=== PATIENT | male | born 1995 | race Caucasian/White ===

== ENCOUNTER → 2019-05-26 08:44 | Day surgery (SDC) | payer OTHER ==
[~2019-05-26 08:44] MED LIST: Acetaminophen TAB* 325 MG ONE; Acetaminophen TAB* 325 MG PO ONE; Acetaminophen TAB* 325 MG PO PRN; Buffered Lidocaine 1% SYRIN* 1 ML/SYRINGE INTRADERM ONE; Bupivacaine 0.25% SDV* 30 ML ONE; Dexamethasone IV* 4 MG/ML 1 ML (4 MG) ONE; DiMENhydriNATE IV* 50 MG/ML VIAL IV PUSH PRN; DiMENhydriNATE IV* 50 MG/ML VIAL ONE; Famotidine IV* 10 MG/ML 2 ML (20 mg) ONE; Gabapentin CAP(*) 300 MG ONE; Gabapentin CAP(*) 300 MG PO ONE; HYDROcodone/ACETAMIN 5-325 MG* 1 TAB PO PRN; Ketorolac INJ* 30 MG/ML 1 ML VIAL ONE; Lactated Ringers 1000 ML Bag* 1,000 ML IV SCH; Levalbuterol 0.63MG/3ML NEB* UNIT OF USE INH PRN; Lidocaine 2% PF * 5 ML VIAL ONE; Midazolam* 1 MG/ML 2 ML VIAL (2 MG) ONE; Naloxone* 0.4 MG/ML 1 ML VIAL IV PRN; Ondansetron INJ* 2 MG/ML VIAL IV PRN; PROCHLORPERAZINE INJ 5 MG/ML 2 ML VIAL IV PRN; Propofol* 10 MG/ML 20 ML BTL ONE; ceFAZolin 2 GM in NS PREMIX(*) 2 GM/100 ML BAG IVPB ONE; diPHENhydraMINE IV* 50 MG/ML 1 ml VIAL (BENADRYL) IV PRN; fentaNYL* 50 MCG/ML 2 ML VIAL (100 MCG VIAL) ONE
[2019-05-26 14:29] VITALS: BP 128/85
--- NOTE | 2019-05-26 15:19 | OP ---
DATE OF OPERATION: 05/26/19 - [facility] DATE OF : 89 SURGEON: Sridhar Leiva MD. BOAT HOIST OPERATOR: DEMETRIS Mora. An executive chef assistant was needed for the entirety of the procedure to aid in positioning of the arm and retraction. ANESTHESIOLOGIST: Dr. Amin. ANESTHESIA: General. PRE-OP DIAGNOSIS: Severe extrinsic tightness of the index through small finger extensor tendons secondary to prior extensor tendon repair and transverse surgery. POST-OP DIAGNOSES: 1. Severe extrinsic tightness of the index through small finger extensor tendons secondary to prior extensor tendon repair and transverse surgery. 2. Rupture of the extensor digiti minimi tendon in the fourth dorsal compartment. OPERATIVE PROCEDURE: 1. Z lengthening of the index, long, ring, and small finger extensor extrinsic tendons. 2. Extensor indicis proprius to extensor digitorum communis tendon transfer over the dorsum of the hand. 3. Extensor digiti minimi to extensor digitorum communis tendon transfer on the dorsum of the hand. INDICATIONS: Sarah had the aforementioned tendon surgery to ease out the marked extrinsic tightness. He can only close the hand when the wrist is 30 degrees or more extended. As soon as he gets the wrist to 30 degrees of extension, the fingers start to pop out straight. By the time it comes to neutral, they are fully straight. We are unable to passively or actively close them until the wrist is extended. We talked about lengthening the tendons and the risk of tendon rupture and the risk and need for additional surgery. He understands all this and he wants to proceed. ESTIMATED BLOOD LOSS: 5 mL. COMPLICATIONS: None. FINDINGS: See above and below. DESCRIPTION OF PROCEDURE: Sarah was seen in the preoperative holding area. The correct side, site, and procedure were identified. We came back to the operating room. The arm was prepped and draped in the usual fashion and a time- out was performed. The arm was exsanguinated with the Esmarch and the tourniquet was inflated to 250 mmHg. I went ahead and reopened his prior longitudinal incision. Dissection was carried down. Full-thickness flaps were raised off the extensor retinaculum. This was opened up over the large extensor tendon, which was quite prominent, it was reflected. All the tendons were in the fourth dorsal compartment except for the EDM which was still seen in the fifth dorsal compartment. I went ahead and performed a full extensor tendon tenolysis as everything was firmly adherent in scar tissue. After I had done that, he still had the extrinsic tightness. I went ahead and first transferred my EIP to the extensor digitorum communis bundle. This was sewed into place with multiple 3- 0 [id number] Ethibond sutures. Next, I performed a Z lengthening of the tendon starting on the dorsum of the hand just proximal to where the tendons all came together and had been sewed together and just distal to the musculotendinous junction. I previously sewed all my tendons together proximally just distal to the musculotendinous junction of the EDC. After I had released the tendons in Z lengthening fashion, that corrected the marked hyperextension of the second, third, and fourth fingers; the fifth finger was still sitting very hyperextended. I therefore dissected out the EDM tendon and noted it to be ruptured and scarred in the fifth dorsal compartment. That was released and then the EDM was transferred to the EDC bundle in standard fashion , secured with multiple 3-0 Ethibond sutures. Next, I weaved together my 2 tendon stumps, the proximal and distal stump using the tendon cuevas. I got a couple of weaves that was all the length I had. I secured with my first 3-0 Ethibond suture and checked the tension, I was very pleased, the fingers came out to nice extension with wrist flexion, but yet I could still gently flex them down and get the fingertip to touch the palm, although it was tight. I then extended the wrist and the fingers curled up nicely. Once I had set my tension, I was pleased with it. I went ahead and secured the tendon transfer with many [id number] 3-0 Ethibond sutures. I made sure my tendon transfers distally were secured well with the Ethibond suture and made sure everything was sewed together nicely proximally and at the weave. The thumb was a little tight, but I thought it was loose enough that I did not need to lengthen that tendon. I therefore went ahead and irrigated out the wound. The retinaculum was closed with 3-0 Ethibond suture. Skin was closed with 4-0 nylon suture. A wrist splint was applied with the MP joints in extension and stopping at the PIP joints to allow for some gentle flexion and extension of the digits in a very low stress way. Tourniquet was deflated during the splint placement and he was taken to the recovery room in stable condition. [id number]/[facility] #: [id number] PRINCE
== END | disposition home or self-care (01) ==
LOC: OREAST 08:44
PROVIDERS: ATTEND Orthopaedic Surgery Hand Surgery
DX: S66.32 Laceration of extensor muscle, fascia and tendon of other and unspecified finger at wrist and hand level (principal); W25.XXXS Contact with sharp glass, sequela; Y92.9 Unspecified place or not applicable; F41.8 Other specified anxiety disorders; F17.210 Nicotine dependence, cigarettes, uncomplicated
CPT/HCPCS: A9270-GY; J0690; J1100; J1240; J1885; J2250; J2704; J3010; J3490